=== PATIENT | female | born 1965 | race Caucasian/White ===

== ENCOUNTER 2024-02-23 06:59 | Day surgery (SDC) | payer MEDICAID ==
[2024-02-23] MEDS ORDERED: fentaNYL 50 MCG/ML SDV ONE (07:22)
[2024-02-23] MEDS: Sodium Chloride 0.9% 1,000 ML IV SCH (07:22)
[2024-02-23] MEDS ORDERED: Midazolam 1 MG/ML 2 ML SDV ONE (07:22)
[2024-02-23] MEDS ORDERED: Propofol 200 MG/20 ML SDV ONE (07:22)
[2024-02-23 09:45] VITALS: BP 131/50; PULSE 55
== END 2024-02-23 10:06 | disposition home or self-care (01) ==
LOC: JP.SDS 06:59
PROVIDERS: ATTEND Surgery
DX: Z12.11 Encounter for screening for malignant neoplasm of colon (principal); D12.6 Benign neoplasm of colon, unspecified; I10 Essential (primary) hypertension; I25.10 Atherosclerotic heart disease of native coronary artery without angina pectoris; K21.9 Gastro-esophageal reflux disease without esophagitis; E11.9 Type 2 diabetes mellitus without complications
CPT/HCPCS: 00811; 45385; 88305; J2250; J2704; J3010; J7030

== ENCOUNTER 2024-02-24 08:34 | Day surgery (SDC) | payer MEDICAID ==
[2024-02-24] MEDS: Lactated Ringers 1,000 ML IV SCH (09:38)
[2024-02-24] MEDS ORDERED: fentaNYL 50 MCG/ML SDV ONE (09:51)
[2024-02-24] MEDS ORDERED: Propofol 200 MG/20 ML SDV ONE (09:51)
[2024-02-24] MEDS ORDERED: Midazolam 1 MG/ML 2 ML SDV ONE (09:51)
[2024-02-24 12:01] VITALS: BP 124/60; PULSE 50
== END 2024-02-24 12:12 | disposition home or self-care (01) ==
LOC: JP.SDS 08:34
PROVIDERS: ATTEND Surgery
DX: Z12.11 Encounter for screening for malignant neoplasm of colon (principal); D12.5 Benign neoplasm of sigmoid colon; R19.5 Other fecal abnormalities; I10 Essential (primary) hypertension; I25.10 Atherosclerotic heart disease of native coronary artery without angina pectoris; K21.9 Gastro-esophageal reflux disease without esophagitis; E11.9 Type 2 diabetes mellitus without complications
CPT/HCPCS: 00813; 43235; 45385; 88305; J2250; J2704; J3010; J7120